=== PATIENT | male | born 2000 | race African-American/Black ===

== ENCOUNTER 2022-08-16 11:38 | Emergency (ER) | payer SELFPAY ==
[2022-08-16 12:14] VITALS: BP 99/47; PULSE 72; RESP 20; TEMP 37.1; O2SAT 100
--- NOTE | 2022-08-16 12:49 | ED.MALEGU ---
HPI - Male Genitourinary General Chief complaint: Urogenital-Male Stated complaint: poss std exposure Time Seen by Provider: 08/16/22 12:32 Source: patient, RN notes reviewed and old records reviewed Mode of arrival: ambulatory Limitations: no limitations History of Present Illness HPI Narrative: 21-year-old male presents to [facility] with complaints possible exposure chlamydia from present girlfriend. Patient states that girlfriend had testing done and was positive. Patient states that testing was highly sensitive type of testing and only wants to be tested and treated for chlamydia since he has not been with anyone else but present girlfriend. Patient reports no penile drainage or any genital discomfort or any fevers. MD Complaint: possible STD exposure Related Data Sexually active: Yes Allergies Allergy/AdvReac Type Severity Reaction Status Date / Time No Known Allergies Allergy Verified 08/16/22 12:26 Review of Systems Review of Systems: CONSTITUTIONAL: Denies fever, chills, or sweats. CARDIOVASCULAR: Denies chest pain, palpitations, or edema. RESPIRATORY: Denies cough or dyspnea. GASTROINTESTINAL: Denies abdominal pain, nausea, vomiting, or diarrhea. GENITOURINARY: Denies dysuria, frequency, urgency. Denies flank pain or hematuria.denies any penile drainage. SKIN: Denies rash or itching. MUSCULOSKELETAL: Denies back pain or myalgia. Denies CVA tenderness NEUROLOGIC: Denies headache All systems reviewed & are unremarkable except as noted in HPI and below PMFSH Social History Social History (Updated 08/19/22 @ 08:49 by Indigo Mcdonald NP) Smoking status: Current every day smoker Tobacco type: e-cigarettes/vaping Alcohol intake: current Alcohol use details: social Substance use: unknown Gender identity (if verbalized by the patient): Male Comments At time of signature, agree with nursing past medical, surgical, social and family history. There is no relevant family history pertinent to the presenting complaint Exam Narrative: GENERAL: Well-appearing, well-nourished, and in no acute distress. HEAD: Normocephalic, atraumatic. NECK: Supple.no lymphadenopathy CHEST: Clear to auscultation. No respiratory distress.SAO2 100% on room air HEART: Regular rate and rhythm. No murmur heard. Normal peripheral pulses. ABDOMEN: Soft, nontender, nondistended, normal active bowel sounds. No CVA tenderness no pain orburning with urination or penile discharge EXTREMITIES: Normal range of motion. No edema. SKIN: Warm, dry, no rash. NEURO: No focal deficits. Alert and oriented x3. Course Course Emergency Course: Patient is aware of diagnosis, understands and agrees to treatment plan.? Anticipatory guidance given.? Patient agrees to follow-up as directed and is aware of reasons to seek care at the emergency department. Portions of this record may have been created with voice recognition software Level of Care: Express Care Visit Vital Signs Vital signs: Vital Signs Temperature 37.1 C 08/16/22 12:14 Pulse Rate 72 08/16/22 12:14 Respiratory Rate 20 08/16/22 12:14 Blood Pressure 99/47 L 08/16/22 12:14 Pulse Oximetry 100 08/16/22 12:14 Oxygen Delivery Room Air 08/16/22 12:14 Temperature 37.1 C 08/16/22 12:14 Pulse Rate 72 08/16/22 12:14 Respiratory Rate 20 08/16/22 12:14 Blood Pressure 99/47 L 08/16/22 12:14 Pulse Oximetry 100 08/16/22 12:14 Oxygen Delivery Room Air 08/16/22 12:14 MDM - Male Genitourinary Differential Diagnosis Differential diagnosis: Likely other (concern for STD exposure, STD testing and treatment for Chlamydia) Medical Records Attestation: I reviewed the patient's medical records. Lab Data Attestation: I reviewed the patient's lab results. Lab results narrative: urine for GC and Chlamydia sent Labs: Lab Results 08/16/22 Range/Units 13:16 C.trachomatis RNA (TMA) Pending N.gonorrhoeae RNA (TMA) Pending Critical Care Time
== END 2022-08-16 13:14 | disposition home or self-care (01) ==
PROVIDERS: Emergency Provider Registered Nurse
DX: Z20.2 Contact with and (suspected) exposure to infections with a predominantly sexual mode of transmission (principal); F17.290 Nicotine dependence, other tobacco product, uncomplicated
CPT/HCPCS: 87491; 87591; 99213; G0463

== ENCOUNTER 2023-12-05 22:52 | Emergency (ER) | payer OTHER, MEDICAID, SELFPAY ==
--- NOTE | ~2023-12-05 | CT_ITS ---
Noncontrast CT scan of the cervical spine Technique: Multiple contiguous axial [address] images of the cervical spine were obtained and rec onstructed in 2D sagittal and coronal planes on the acquisition scanner. Dose reduction technique was used on this scan by utilizing automated exposure control, adjustment of the mA and/or kV according to patient size. The dose-length product (DLP) was 394.95 mGy-cm. Clinical History: Pain Findings: No fractures or dislocations. Unremarkable visualized bony structures. The intervertebral disc spaces are preserved. No prevertebral soft tissue swelling. Impression: No fracture or subluxation of the cervical spine. Reviewed, dictated and finalized at location . Impression: No fracture or subluxation of the cervical spine.
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
[2023-12-05 23:05] VITALS: BP 120/72; PULSE 97; RESP 16; TEMP 36.7; O2SAT 97
[2023-12-06 02:16] VITALS: BP 113/63; PULSE 78; RESP 13; O2SAT 100
[2023-12-06 04:01] LABS: Basophils Absolute Auto 0.1 K/mm3 (0.0-0.1); Basophils Percent Auto 0.6 % (0.2-1.2); Eosinophils Absolute Auto 0.1 K/mm3 (0-0.3); Eosinophils Percent Auto 1.6 % (0-4.4); Hematocrit 40.5 % (42.0-52.0); Hemoglobin 13.3 g/dL (14.0-18.0); Immature Granulocyte Absolute 0.01 K/mm3 (0.00-0.031); Immature Granulocyte Percent A 0.1 % (0-0.5); Lymphocytes Absolute Auto 3.73 K/mm3 (0.9-3.2); Lymphocytes Percent Auto 43.3 % (18.3-44.2); Mean Corpuscular HGB Conc 32.8 g/dl (32-36); Mean Corpuscular Hemoglobin 27.1 pg (26-34); Mean Corpuscular Volume 82.5 fl (80-100); Mean Platelet Volume 9.4 fl (7.4-10.4); Monocytes Absolute Auto 0.5 K/mm3 (0.1-0.6); Monocytes Percent Auto 5.7 % (2.6-8.5); Neutrophils Absolute Auto 4.2 K/mm3 (1.3-6.7); Neutrophils Percent Auto 48.7 % (45.5-73.1); Platelet Count Result 287 k/mm3 (150-375); Red Blood Count 4.91 M/mm3 (4.6-6.20); Red Cell Distribution Width 12.7 % (11.5-14.5); White Blood Count 8.6 K/mm3 (4.5-10.0)
[2023-12-06] MEDS: diazePAM INJ (*CRX) 10 MG/2 ML SYRINGE 5 MG IV PUSH (04:07)
[2023-12-06 04:11] LABS: Alanine Aminotransferase 28 U/L (6-50); Albumin Level 4.6 g/dL (3.5-5.1); Alkaline Phosphatase 77 U/L (38-126); Anion Gap 11 mmol/L (4-12); Aspartate Amino Transferase 32 U/L (17-59); Bilirubin,Total 0.7 mg/dL (0.2-1.3); Blood Urea Nitrogen 16 mg/dL (9-20); Calcium 9.4 mg/dL (8.4-10.2); Carbon Dioxide 28 mmol/L (22-30); Chloride 100 mmol/L (98-107); Estimated CRCL calculation 75 ml/min; Estimated Glomerular Filt Rate > 60; Glucose 85 mg/dL (65-110); Potassium 3.6 mmol/L (3.4-5.0); Sodium 139 mmol/L (137-145)
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
[2023-12-06] MEDS: KETOROLAC 15 MG/ML VIAL (*BKC) IV PUSH (05:29)
[2023-12-06 06:34] VITALS: BP 130/62; PULSE 90; RESP 15; O2SAT 98
== END 2023-12-06 06:35 | disposition home or self-care (01) ==
PROVIDERS: Emergency Provider Emergency Medicine
DX: S39.012A Strain of muscle, fascia and tendon of lower back, initial encounter (principal); S16.1XXA Strain of muscle, fascia and tendon at neck level, initial encounter; F17.290 Nicotine dependence, other tobacco product, uncomplicated; V44.6XXA Car passenger injured in collision with heavy transport vehicle or bus in traffic accident, initial encounter
CPT/HCPCS: 36415; 70450; 71260; 72125; 74177; 80053; 85025; 96374; 96375; 99284; J1885; J3360; Q9967

== ENCOUNTER 2024-11-18 16:07 | Emergency (ER) | payer SELFPAY ==
--- NOTE | ~2024-11-18 | XR_ITS ---
EXAMINATION: XR chest 2V Exam Date/Time: 11/18/2024 16:40 CDT HISTORY: wheezing, cough SINCE SUNDAY Comparison: None. RESULT: Lines, tubes, and devices: None. Lungs and pleura: Clear. Cardiomediastinal silhouette: Normal. Other: No acute osseous or upper abdominal finding. IMPRESSION: No acute cardiopulmonary process. Reviewed, dictated and finalized at location K.
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
--- OUTSIDE RECORDS SUMMARY | 2024-11-18 16:09 | XMS_ITS | Clinical Summary ---
Author Organization [facility] Address [address] [place] [address] Care Team Providers Care Verse Writer Name Role Phone Unavailable Primary Care Provider Unavailabl e Social History Tobacco Use Types Packs/Day Years Used Date Smoking Tobacco: Never Assessed Sex and Gender Information Value Date Recorded Sex Assigned at Not on file Legal Sex Male 4:39 PM CDT Gender Identity Not on file Sexual Orientation Not on file Plan of Treatment Health Maintenance Due Date Last Done Comments Annual Physical 09/01/2003 HPV Vaccines (1 - Male 3-dos e series) 09/01/2015 Hepatitis C 2018 DTaP, Tdap and Td Vaccines ( 1 - Tdap) 09/01/2019 Hepatitis B Vaccines (1 of 3 - 19+ 3-dose series) 09/01/2019 COVID-19 Vaccine ( - 2023-2 5 season) 2023 Meningococcal B Vaccine Aged Out No l onger eligible based on patient's age to complete this topic Meningococcal Vaccine Aged Out No woody ольга eligible based on patient's age to complete this topic Pneumococcal Vaccine: Pediat rics (0 to 5 Years) and At-Risk Patients (6 to 49 Years) Aged Out No longer eligible b ased on patient's age to complete this topic RSV Immunizations Under 20 Months Aged Out No longer eligible based on patient's age to complete this topic
[2024-11-18 16:10] VITALS: BP 120/62; PULSE 106; RESP 16; TEMP 36.7; O2SAT 99
--- OUTSIDE RECORDS SUMMARY | 2024-11-18 16:10 | XMS_ITS | Clinical Summary ---
Author Organization [facility] Address [address] [place] [address] Care Team Providers Care Mechanical Ordnance Assembler Name Role Phone Ryan Jin MD Primary Care Provider [phone] Source Comments [employer] [facility],non-owned Affiliates and Associated Physician Practices is amultiple site organization consisting of ambulatory clinics and hospital sitesin [place], [place], [place] and [place]. This disclosure is being madepursuant to the Care Everywhere program and may not contain all information available regarding this patient. Last updated 18.[employer] Allergies No known active allergies Medications * Be aware that medications may not be up to date on this document. Alwaysverify current medications with the patient. hydrOXYzine HCl (Atarax) 25 MG tablet Take 1 (one) tablet by mouth 4 times daily as needed for Itching 28 tablet 08/28/2024 Active Active Problems Problem Noted Date Diagnosed Date Closed fracture of fifth metatarsal bone 012 Encounters Date Type Department Care Team Description 08/28/2024 6:58 PM CDT - 08/28/2024 8:50 PM CDT Emergency [facility] [address] [place] [id number] Rash (Primary Dx) Discharge Disposition: Home or Self Care 08/28/2024 Travel from Last 3 Months Social History Tobacco Use Types Packs/Day Years Used Date Smoking Tobacco: Never Assessed Sex and Gender Information Value Date Recorded Sex Assigned at Not on file Legal Sex Male 2:09 PM BLANKET CUTTER HAND Gender Identity Not on file Sexual Orientation Not on file Last Filed Vital Signs Vital Sign Reading Time Taken Comments Blood Pressure 99/63 08/28/2024 6:12 PM CDT Pulse 78 08/28/2024 6:12 PM CDT Temperature 36.7 C (98 F) 08/28/2024 6:12 PM CDT Respiratory Rate 18 08/28/2024 6:12 PM CDT Oxygen Saturation 100% 08/28/2024 6:12 PM CDT Inhaled Oxygen Concentration - - Weight 62.6 kg (138 lb) 08/28/2024 6:12 PM CDT Height 172.7 cm (5' 8) 08/28/2024 6:12 PM CDT Body Mass Index 20.98 08/28/2024 6:12 PM CDT Plan of Treatment Health Maintenance Due Date Last Done Comments HIV SCREENING 09/01/2015 HPV VACCINE (1 - Male 3-dose series) 09/01/2015 HEPATITIS C SCREENING 08/27/2018 DTAP/TDAP/TD VACCINES (1 - Tdap) 09/01/2019 HEPATITIS B VACCINE (1 of 3 - 19+ 3-dose series) 09/01/2019 COVID-19 VACCINE (1 - 2023-2 5 season) 2023 DEPRESSION SCREENING 04/30/2024 INFLUENZA VACCINE (#1) 2024 ZOSTER VACCINE (1 of 2) 2050 HIB VACCINE Aged Out No longer eligi ble based on patient's age to complete this topic MENINGOCOCCAL (Group B) VACC INE SHARED DECISION-MAKING Aged Out No longer eligibl e based on patient's age to complete this topic MENINGOCOCCAL GROUPS A/C/Y/W VACCINE Aged Out No longer eligible b ased on patient's age to complete this topic PNEUMOCOCCAL VACCINE Aged Out No long er eligible based on patient's age to complete this topic Insurance [employer] Care Teams Mechanical Ordnance Assembler Relationship Specialty Start Date End Date Ryan Jin MD PCP - General Family Medicine 01/08/18
--- NOTE | 2024-11-18 16:26 | ED_ITS ---
HPI - Male Genitourinary General Chief complaint: Urogenital-Male Stated complaint: I having an outbreak Time Seen by Provider: 11/18/24 16:20 Focused HPI: Patient is a 24-year-old male who presents to the ER with concerns of a herpes outbreak. He reports he has had an outbreak in the past and was placed on Valtrex. Patient reports this outbreak started today. He denies any urinary symptoms, any belly pain, or chest pain. Patient reports he has had a ?cough and cold the past 3 days and has noticed intermittent wheezing. He denies any other medical history besides herpes genitalis. GENERAL: Well-appearing, well-nourished, and in no acute distress. HEAD: Normocephalic, atraumatic. CHEST: L lower lobe crackles to auscultation. ?No respiratory distress. HEART: Regular rate and rhythm.? NEURO: ?Alert and oriented x3. Patient screened in triage and initial orders placed.? ?Additional care and disposition to be based upon?diagnostic testing and treatment. Related Data Allergies Allergy/AdvReac Type Severity Reaction Status Date / Time No Known Allergies Allergy Verified 11/18/24 16:12 Review of Systems Review of Systems: All systems reviewed & are unremarkable except as noted in HPI and below PMFSH Social History Social History Smoking status: Current every day smoker Tobacco type: e-cigarettes/vaping Alcohol intake: current Alcohol use details: social Substance use: unknown Gender identity (if verbalized by the patient): Male Exam Narrative: GENERAL: Well appearing, well-nourished, non-toxic, in no acute distress. HEAD: Normocephalic, atraumatic. NECK: Supple. No adenopathy, no masses. RESPIRATORY: Airway patent, respirations nonlabored. Left lower lobe crackles, otherwise clear to auscultation bilaterally, no rales, rhonchi, wheezing. CARDIOVASCULAR: Regular rate and rhythm without murmurs, rubs, or gallops. Peripheral pulses 2+ and equal bilaterally. ABDOMINAL: Soft, nontender, nondistended, no hepatosplenomegaly. Normoactive BS. MUSCULOSKELETAL: Moves all extremities. Strength/ROM intact without gross deformities. SKIN: Warm, dry, normal color. No rashes. NEURO: A&O X3. Speech clear. Cranial nerves II-XII intact. No ataxic movements. PSYCHIATRIC: Appropriate mood and affect. Normal interaction. Course Vital Signs Vital signs: Vital Signs Temperature 36.7 C 11/18/24 16:10 Pulse Rate 106 H 11/18/24 16:10 Respiratory Rate 16 11/18/24 16:10 Blood Pressure 120/62 11/18/24 16:10 Pulse Oximetry 99 11/18/24 16:10 Oxygen Delivery Room Air 11/18/24 16:10 Temperature 36.7 C 11/18/24 16:10 Pulse Rate 106 H 11/18/24 16:10 Respiratory Rate 16 11/18/24 16:10 Blood Pressure 120/62 11/18/24 16:10 Pulse Oximetry 99 11/18/24 16:10 Oxygen Delivery Room Air 11/18/24 16:10 MDM - Male Genitourinary MDM Narrative Medical decision making narrative: Patient is a 24-year-old male who presents to the ER with concerns of a herpes outbreak. He reports he has had an outbreak in the past and was placed on Valtrex. Patient reports this outbreak started today. He den ies any urinary symptoms, any belly pain, or chest pain. Patient reports he has had a ?cough and cold the past 3 days and has noticed intermittent wheezing. He denies any other medical history besides herpes genitalis. Labs Ordered: None necessary Imaging Ordered: Chest x-ray Medications Ordered: None necessary Results: Patient's chest x-ray indicates No acute cardiopulmonary process. Diagnosis: Herpes genitalis Patient Education/Shared MDM: Results of imaging shared with patient. Patient strongly advised to follow-up with his PCP as needed. He will be discharged home with a prescription for Valtrex. Strict return precautions provided. Patient verbalized understanding and is in agreement with plan. Vital signs stable at time of discharge. All questions answered. Differential Diagnosis Differential diagnosis: Likely urinary tract infection, genital herpes simplex and other (Pneumonia) Imaging Data Attestation: I personally reviewed and interpreted this imaging study as follows: Radiologist's impression: Impressions Chest X-Ray 11/18/24 16:58 IMPRESSION: No acute cardiopulmonary process. Discharge Plan Discharge Clinical Impression: Genital herpes simplex, Cough Patient Disposition: Home Condition: Stable Instructions: Antibiotic Form, Genital Herpes Infection (ED) Additional Instructions: Please return to the ER with any worsening symptoms. Follow-up with primary care provider as needed. Take all medications as prescribed. Patient Language: Divehi Prescriptions: New valacyclovir [Valtrex] 1 gram tablet 1,000 mg PO Q12H Qty: 20 0RF No Action doxycycline hyclate 100 mg capsule 100 mg PO DAILY Qty: 14 0RF cyclobenzaprine 10 mg tablet 10 mg PO TID PRN (Reason: muscle spasm) Qty: 21 0RF ibuprofen 800 mg tablet 800 mg PO TID PRN (Reason: pain) Qty: 30 0RF Follow-up/Referrals: PHYSICIAN,VOCATIONAL REHABILITATION SPECIALIST [Primary Care Provider] - Time of Disposition: 17:25
--- OUTSIDE RECORDS SUMMARY | 2024-11-18 17:34 | XMS_ITS | Clinical Summary ---
Author Organization [facility] Address [address] [place] [address] Care Team Providers Care Reception Interviewer Name Role Phone Ryan Jin MD Primary Care Provider [phone] Source Comments [employer] [facility],non-owned Affiliates and Associated Physician Practices is amultiple site organization consisting of ambulatory clinics and hospital sitesin [place], [place], [place] and [place]. This disclosure is being madepursuant to the Care Everywhere program and may not contain all information available regarding this patient. Last updated 18.[employer] Allergies No known active allergies Medications * [...] CDT - 08/28/2024 8:50 PM CDT Emergency [facility] EMERGENCY DEPARTMENT [address] [place] [id number] Rash (Primary Dx) Discharge Disposition: Home or Self Care 08/28/2024 Travel from Last 3 Months Social History Tobacco Use Types Packs/Day Years Used Date Smoking Tobacco: Never Assessed Sex and Gender Information Value Date Recorded Sex Assigned at Not on file Legal Sex Male 2:09 PM PRODUCTION ROUSTABOUT Gender Identity Not on file Sexual Orientation [...] patient's age to complete this topic Insurance [employer] Care Teams Reception Interviewer Relationship Specialty Start Date End Date Ryan Jin MD PCP - General Family Medicine 01/08/18
--- OUTSIDE RECORDS SUMMARY | 2024-11-18 17:34 | XMS_ITS | Clinical Summary ---
Author Organization [facility] Address [address] [place] [address] Care Team Providers Care Fur Sorter Name Role Phone Unavailable Primary Care Provider [...]
== END 2024-11-18 17:38 | disposition home or self-care (01) ==
LOC: ANHED 17:32
PROVIDERS: Emergency Provider Registered Nurse
DX: A60.00 Herpesviral infection of urogenital system, unspecified (principal); R05.9 Cough, unspecified
CPT/HCPCS: 71046; 99283

== ENCOUNTER 2024-11-28 15:30 | Emergency (ER) | payer SELFPAY ==
--- NOTE | ~2024-11-28 | US_ITS ---
EXAMINATION: US scrotum doppler DATE: 11/28/2024 16:42 INDICATION: lump at base of scrotum . TECHNIQUE: Grayscale and Doppler ultrasound images of the testes were obtained. COMPARISON: None. FINDINGS: The right testis measures 5.7 x 2.4 x 3.3 cm. The left testis measures 5.6 x 2.5 x 3.5 cm. No testicular mass. There is normal vascular flow to both testes. The right epididymis is normal with normal vascular flow. The left epididymis is normal with normal vascular flow. There is no varicocel e or hydrocele. Focused sonographic evaluation at the area of clinical concern revealed only a normal -appearing epididymal head. IMPRESSION: Normal scrotal ultrasound findings. Reviewed, dictated and finalized at location K.
[2024-11-28 15:33] VITALS: BP 139/69; PULSE 105; RESP 18; TEMP 36.6; O2SAT 97
--- OUTSIDE RECORDS SUMMARY | 2024-11-28 15:33 | XMS_ITS | Clinical Summary ---
Author Organization [facility] Address [address] [place] [address] Care Team Providers Care Regrinder Operator Name Role Phone Unavailable Primary Care Provider [...]
--- OUTSIDE RECORDS SUMMARY | 2024-11-28 15:33 | XMS_ITS | Clinical Summary ---
Author Organization [facility] Address [address] [place] [address] Care Team Providers Care Precision Dancer Name Role Phone Ryan Jin MD Primary Care Provider [phone] Source Comments [email or web address] [facility],non-owned Affiliates and Associated Physician Practices is amultiple site organization consisting of ambulatory clinics and hospital sitesin [place], [place], [place] and [place]. This disclosure is being madepursuant to the Care Everywhere program and may not contain all information available regarding this patient. 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
--- OUTSIDE RECORDS SUMMARY | 2024-11-28 15:33 | XMS_ITS | Clinical Summary ---
Author Organization [facility] Address [address] [place] [id number] Care Team Providers Care Ticket Marker Name Role Phone Unavailable Primary Care Provider Unavailabl e Allergies No known active allergies Medications loperamide (IMODIUM) 2 mg capsule Take 1 Capsule (2 mg) by mouth every 3 hours as needed for Diarrhea/Loo se Stools. 30 Capsule 02/04/2024 Active Active Problems No known active problems Encounters Date Type Department Care Team Description 10/14/2024 External Device Data [facility] Provider, Abstract 09/23/2024 External Device Data [facility] Provider, Abstract 09/18/2024 External Device Data [facility] Provider, Abstract 09/17/2024 External Device Data [facility] Provider, Abstract 09/16/2024 External Device Data [facility] Provider, Abstract from Last 3 Months Social History Tobacco Use Types Packs/Day Years Used Date Smoking Tobacco: Never Assessed Sex and Gender Information Value Date Recorded Sex Assigned at Not on file Legal Sex Male 9:47 AM CDT Gender Identity Not on file Sexual Orientation Not on file Last Filed Vital Signs Vital Sign Reading Time Taken Comments Blood Pressure 105/57 02/04/2024 9:52 AM CDT Pulse 65 02/04/2024 9:52 AM CDT Temperature 36.7 C (98 F) 02/04/2024 9:52 AM CDT Respiratory Rate 18 02/04/2024 9:52 AM CDT Oxygen Saturation 98% 02/04/2024 9:52 AM CDT Inhaled Oxygen Concentration - - Weight 63.5 kg (140 lb) 02/04/2024 9:52 AM CDT Height 172.7 cm (5' 8) 02/04/2024 9:52 AM CDT Body Mass Index 21.29 02/04/2024 9:52 AM CDT Plan of Treatment Health Maintenance Due Date Last Done Comments HPV VACCINES (1 - Male 3-dose series) 09/01/2015 DTAP/TDAP/TD VACCINES (1 - Tdap) 09/01/2019 HEPATITIS B VACCINES (1 of 3 - 19+ 3-dose series) 07/2019 INFLUENZA VACCINE (#1) 2024 Insurance [employer] [place]
--- OUTSIDE RECORDS SUMMARY | 2024-11-28 15:33 | XMS_ITS | Patient Health Record ---
Author Organization [facility] Address [address] [place] [address] Care Team Providers Care Electric Meter Tester Helper Name Role Phone Juliet Anaya Primary Care Provider Gifty Gage Unavailable [phone] Allergies No Known Allergies Reason For Referral Reason Peer Recovery Specia list and Individual Psychotherapy upon discharge from CRU/MRU Diagnosis 1 PTSD (post-traumatic stress disorder) (F43.10) Diagnosis 2 CARA (generalized anx iety disorder) (F41.1) Diagnosis 3 Cannabis use disorde r (F12.90) Referral Organization [facility] Referring Provider First Name Keshia Referring Provider Last Name Franc Referring Provider Speciality Psychiatry Referred Provider Specialty [facility] Clinical Notes Carlos Enrique Mattson 10:31:25 AM >Requested services will be coordinated upon consumer's release from CRU/MRU. VEENA contacted CRU/MRU staff for any possible release date information and to coordinate requested services.Srinivasan Paulean 12/04/2023 11:51:32 AM >Received the following response from Jose Guadalupe Marroquin: He is currently on the MRU and is set to discharge on the of this month. HN will coordinate requested services upon discharge date.Srinivasan Paulean 01/02/2024 10:51:38 AM >VEENA PW contacted consumer regarding referral. Consumer is [...] Assigned At Male PRAPARE Question Answer Notes Are you a refugee? No What country are you from? [place] Date Completed/Updated: 11/22/2023 What is your current housing situation? I have h ousing Are you worried about losing your housing? Yes What is the highest level of school that you have finished? Less than a high school degree What is your current work situation? Unemployed [...] phone, visiting friends or family, going to pentecostal or club meetings) 1 or 2 times a week How stressed are you? Stress is when someone feels tense, nervous, anxious, or can\t sleep at night because their mind is troubled Very much In the past year have you sp ent more than 2 nights in a row in a senior care, custodial, [place] health care facility center, or juvenile correctional facility? No Do you feel physically and e motionally safe where you currently live? No In the past year, have you b een afraid of your partner or ex-partner? No PRAPARE Score: 2 Tobacco Control (Standard) Question [...] W/U Status Risk Notes Problem Tobacco user (544141237) Nicotine dependence, unspecified, uncomplicated (F17.200) Active confirmed Problem Posttraumatic stress disorder (84085609) PTSD (post-traumatic stress disorder) (F43.10) Active confirmed Problem Generalized anxiety disorder (71544810) CARA (generalized anxiety disorder) (F41.1) Active confirmed Problem Human herpes simplex virus antibody (888264548) 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) Active confirmed Encounters Encounter Location Date Provider Diagnosis [facility] [address] [place] [address] 11/29/2023 Juliet Anaya [address] [place] [address] 01/02/2024 [email or web address] Gage Plan Of Treatment No Information Insurance Providers Payer Name Payer Address Payer Phone Subscriber Number Group Number Insured Name Patient Relationship to Insured Coverage Start Date Coverage End Date MEDICAID [address] [place] [address] [id number] Flex Gonzalez Self - patient is the insured 4 [employer] [address] [place] [address] [id number] Flex Gonzalez Self - patient is the insured 4
[2024-11-28 15:47] VITALS: BP 107/63; PULSE 65; RESP 17; TEMP 36.5; O2SAT 100
--- NOTE | 2024-11-28 15:50 | ED_ITS ---
HPI - General Adult General Chief complaint: Unspecified <Karla Rivera APRN - Last Filed: 11/28/24 15:53> Stated complaint: Testicle lump <Karla Rivera APRN - Last Filed: 11/28/24 15:53> Time Seen by Provider: 11/28/24 15:40 <Karla Rivera APRN - Last Filed: 11/28/24 15:53> Focused HPI: Patient is a 24-year-old the ER with complaints of a lump at the base of his scrotum. He reports he noticed the lump about a week ago. Patient reports he also had a recent herpes outbreak which was treated with antiviral medication. He reports the lump has grown larger since then. Patient denies any pain at the site, scrotal pain, urinary symptoms or penile discharge. He denies any other medical history relevant to this ER visit. GENERAL: Well-appearing, well-nourished, and in no acute distress. HEAD: Normocephalic, atraumatic. CHEST: Clear to auscultation. ?No respiratory distress. HEART: Regular rate and rhythm.? NEURO: ?Alert and oriented x3. Patient screened in triage and initial orders placed.? ?Additional care and disposition to be based upon?diagnostic testing and treatment. <Karla Rivera APRN - Last Filed: 11/28/24 15:53> History of Present Illness HPI narrative: I agree with the above HPI <Sal Darling MD - Last Filed: 11/28/24 18:52> Related Data Allergies/adverse reactions: Allergies Allergy/AdvReac Type Severity Reaction Status Date / Time No Known Allergies Allergy Verified 11/18/24 16:12 <Karla Rivera APRN - Last Filed: 11/28/24 15:53> Review of Systems Review of Systems: All systems reviewed & are unremarkable except as noted in HPI and below <Sal Darling MD - Last Filed: 11/28/24 18:52> PMFSH Social History Social History: Social History Smoking status: Current every day smoker Tobacco type: e-cigarettes/vaping Alcohol intake: current Alcohol use details: social Substance use: unknown Gender identity (if verbalized by the patient): Male <Karla Rivera APRN - Last Filed: 11/28/24 15:53> Exam Narrative: APPEARANCE: Well appearing, no pain, no distress, well-nourished. HEAD: normocephalic, atraumatic. EYES: PERRLA/EOMI, conjunctivae clear. NOSE: Normal no drainage EARS:TMS clear with good light reflex. THROAT: Pharynx clear, no exudate. NECK: Supple. No adenopathy, no masses. RESPIRATORY: Airway patent, respirations nonlabored. Clear to auscultation bilaterally, no rales, rhonchi, wheezing. CARDIOVASCULAR: Regular rate and rhythm without murmurs rubs or gallops. ABDOMINAL: Soft, nontender, nondistended, normal bowel sounds MUSCULOSKELETAL: Moves all extremities. Strength/ROM intact, No edema, No calf tenderness. NEURO: Alert. Cranial nerves II through XII intact. Good gait. Good coordination Genital exam: Suspected lymph node at left groin, no cellulitis, no abscess <Sal Darling MD - Last Filed: 11/28/24 18:52> Course Vital Signs Vital signs: Vital Signs Temperature 97.9 F 11/28/24 15:33 Pulse Rate 105 H 11/28/24 15:33 Respiratory Rate 18 11/28/24 15:33 Blood Pressure 139/69 11/28/24 15:33 Pulse Oximetry 97 11/28/24 15:33 Temperature 97.7 F 11/28/24 15:47 Pulse Rate 65 11/28/24 15:47 Respiratory Rate 17 11/28/24 15:47 Blood Pressure 107/63 11/28/24 15:47 Pulse Oximetry 100 11/28/24 15:47 Oxygen Delivery Room Air 11/28/24 15:47 <Karla Rivera APRN - Last Filed: 11/28/24 15:53> Vital Signs Temperature 97.9 F 11/28/24 15:33 Pulse Rate 105 H 11/28/24 15:33 Respiratory Rate 18 11/28/24 15:33 Blood Pressure 139/69 11/28/24 15:33 Pulse Oximetry 97 11/28/24 15:33 Temperature 97.7 F 11/28/24 15:47 Pulse Rate 65 11/28/24 15:47 Respiratory Rate 17 11/28/24 15:47 Blood Pressure 107/63 11/28/24 15:47 Pulse Oximetry 100 11/28/24 15:47 Oxygen Delivery Room Air 11/28/24 15:47 <Sal Darling MD - Last Filed: 11/28/24 18:52> Medical Decision Making Vital Signs Vital Signs: Vital Signs Temperature 97.9 F 11/28/24 15:33 Pulse Rate 105 H 11/28/24 15:33 Respiratory Rate 18 11/28/24 15:33 Blood Pressure 139/69 11/28/24 15:33 Pulse Oximetry 97 11/28/24 15:33 Temperature 97.7 F 11/28/24 15:47 Pulse Rate 65 11/28/24 15:47 Respiratory Rate 17 11/28/24 15:47 Blood Pressure 107/63 11/28/24 15:47 Pulse Oximetry 100 11/28/24 15:47 Oxygen Delivery Room Air 11/28/24 15:47 <Karla Rivera APRN - Last Filed: 11/28/24 15:53> Vital Signs Temperature 97.9 F 11/28/24 15:33 Pulse Rate 105 H 11/28/24 15:33 Respiratory Rate 18 11/28/24 15:33 Blood Pressure 139/69 11/28/24 15:33 Pulse Oximetry 97 11/28/24 15:33 Temperature 97.7 F 11/28/24 15:47 Pulse Rate 65 11/28/24 15:47 Respiratory Rate 17 11/28/24 15:47 Blood Pressure 107/63 11/28/24 15:47 Pulse Oximetry 100 11/28/24 15:47 Oxygen Delivery Room Air 11/28/24 15:47 <Sal Darling MD - Last Filed: 11/28/24 18:52> Lab Data Labs: Lab Results 11/28/24 Range/Units 15:55 Urine Color Yellow (Yellow) Urine Appearance Clear (Clear) Urine pH 7.0 (5.0-9.0) Ur Specific [place] 1.025 (1.001-1.035) Urine Protein 1+ H (Negative) mg/dL Urine Glucose (UA) Negative (Negative) mg/dL Urine Ketones Negative (Negative) mg/dL Ur Blood (Man) Negative (Negative) Urine Nitrate Negative (Negative) Urine Bilirubin Negative (Negative) Urine Urobilinogen 1.0 (<2.0) mg/dL Leukocyte Esterase Rfl Negative (Negative) IRISH/UL Urine RBC 0-2 (0-2) /hpf Urine WBC 0-5 (0-3) /hpf Ur Squamous Epith Cells None seen (Few) /hpf Urine Bacteria None seen /hpf Urine Casts 0-2 <Karla Rivera APRN - Last Filed: 11/28/24 15:53> Lab Results 11/28/24 Range/Units 15:55 Urine Color Yellow (Yellow) Urine Appearance Clear (Clear) Urine pH 7.0 (5.0-9.0) Ur Specific [place] 1.025 (1.001-1.035) Urine Protein 1+ H (Negative) mg/dL Urine Glucose (UA) Negative (Negative) mg/dL Urine Ketones Negative (Negative) mg/dL Ur Blood (Man) Negative (Negative) Urine Nitrate Negative (Negative) Urine Bilirubin Negative (Negative) Urine Urobilinogen 1.0 (<2.0) mg/dL Leukocyte Esterase Rfl Negative (Negative) IRISH/UL Urine RBC 0-2 (0-2) /hpf Urine WBC 0-5 (0-3) /hpf Ur Squamous Epith Cells None seen (Few) /hpf Urine Bacteria None seen /hpf Urine Casts 0-2 <Sal Darling MD - Last Filed: 11/28/24 18:52> Discharge Plan Discharge Clinical Impression: Lymphadenopathy <Karla Rivera APRN - Last Filed: 11/28/24 15:53> Patient Disposition: Home <Karla Rivera APRN - Last Filed: 11/28/24 15:53> Condition: Stable <Karla Rivera APRN - Last Filed: 11/28/24 15:53> Instructions: Antibiotic Form, Lymphadenopathy (ED) <Karla Rivera APRN - Last Filed: 11/28/24 15:53> Additional Instructions: Scheduled ibuprofen for enlarged lymph nodes. Have close follow-up with your primary care physician. Have close follow-up with Urology. If you have any worsening symptoms then please call or return to the emergency department. <Karla Rivera APRN - Last Filed: 11/28/24 15:53> Patient Language: Russian <Karla Rivera, DEDICATED LOCAL TRUCK DRIVER - Last Filed: 11/28/24 15:53> Prescriptions: No Action doxycycline hyclate 100 mg capsule 100 mg PO DAILY Qty: 14 0RF cyclobenzaprine 10 mg tablet 10 mg PO TID PRN (Reason: muscle spasm) Qty: 21 0RF ibuprofen 800 mg tablet 800 mg PO TID PRN (Reason: pain) Qty: 30 0RF valacyclovir [Valtrex] 1 gram tablet 1,000 mg PO Q12H Qty: 20 0RF <Karla Rivera, DEDICATED LOCAL TRUCK DRIVER - Last Filed: 11/28/24 15:53> Follow-up/Referrals: Arthur Moreland MD [Physician] - PHYSICIAN,HOSPICE EXECUTIVE DIRECTOR [Primary Care Provider] - <Karla Rivera, DEDICATED LOCAL TRUCK DRIVER - Last Filed: 11/28/24 15:53>
[2024-11-28 16:07] LABS: Add Urine Microscopic? YES; Appearance Urine Clear (Clear); Glucose Urine UA Negative (Negative); Leukocyte Esterase Ur Negative LEU/UL (Negative); Nitrate Urine Negative (Negative); Non Pathogenic Casts 0-2; Specific Grav Ur 1.025 (1.001-1.035)
--- OUTSIDE RECORDS SUMMARY | 2024-11-28 17:51 | XMS_ITS | Clinical Summary ---
Author Organization [facility] Address [address] [place] [id number] Care Team Providers Care Tellers Supervisor Name Role Phone Unavailable Primary Care Provider [...]
--- OUTSIDE RECORDS SUMMARY | 2024-11-28 17:51 | XMS_ITS | Clinical Summary ---
Author Organization [facility] Address [address] [place] [address] Care Team Providers Care Numerical Control Nesting Operator Name Role Phone Unavailable Primary Care [...]
--- OUTSIDE RECORDS SUMMARY | 2024-11-28 17:51 | XMS_ITS | Clinical Summary ---
Author Organization [facility] Address [address] [place] [address] Care Team Providers Care Towel Hemmer Name Role Phone Ryan Jin MD Primary Care Provider [phone] Source Comments [employer] [facility],non-owned Affiliates and Associated Physician Practices is amultiple site organization consisting of ambulatory clinics and hospital sitesin [place], [place], [place] and [place]. This disclosure is being madepursuant to the Care Everywhere program and may not contain all information available regarding this patient. 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
== END 2024-11-28 18:10 | disposition home or self-care (01) ==
LOC: ANHED 17:49
PROVIDERS: Registered Nurse; Emergency Provider Emergency Medicine
DX: R59.1 Generalized enlarged lymph nodes (principal); F17.290 Nicotine dependence, other tobacco product, uncomplicated
CPT/HCPCS: 76870; 81001; 93976; 99284

== ENCOUNTER 2025-01-28 14:26 | Emergency (ER) | payer SELFPAY ==
[2025-01-28 14:30] VITALS: BP 146/101; PULSE 104; RESP 16; TEMP 36.4; O2SAT 98
--- OUTSIDE RECORDS SUMMARY | 2025-01-28 14:33 | XMS_ITS | Clinical Summary ---
Author Organization [facility] Address [address] [place] [address] Care Team Providers Care Rn Resource Nurse Name Role Phone Ryan Jin MD Primary Care Provider Source Comments [employer],non-owned Affiliates and Associated Physician Practices is amultiple site organization consisting of ambulatory clinics and hospital sitesin [place] and [place]. This disclosure is being madepursuant to the Care Everywhere program and may not contain all information available regarding this patient. Last updated [email or web address] Allergies No known active allergies Medications * Be aware that medications may not be up to date on this document. Alwaysverify current medications with the patient. 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
--- OUTSIDE RECORDS SUMMARY | 2025-01-28 14:33 | XMS_ITS | Clinical Summary ---
Author Organization [facility] Address [address] [place] [address] Care Team Providers Care Steam Tank Operator Name Role Phone Unavailable Primary Care Provider Unavailabl e Allergies No known active allergies Medications loperamide (IMODIUM) 2 mg capsule Take 1 Capsule (2 mg) by mouth every 3 hours as needed for Diarrhea/Loo se Stools. 30 Capsule 02/04/2024 Active Active Problems No known active problems Encounters Date Type Department Care Team Description 01/13/2025 External Device Data [facility] ABSTRACTION Provider, Abstract [...]
--- OUTSIDE RECORDS SUMMARY | 2025-01-28 14:33 | XMS_ITS | Clinical Summary ---
Author Organization [facility] Address [address] [place] [address] Care Team Providers Care Electronic Drafter Name Role Phone Unavailable Primary Care Provider [...] - 19+ 3-dose series) 09/01/2019 COVID-19 Vaccine (1 - 2023-2 5 season) 2024 Meningococcal B Vaccine Aged Out No l [...]
--- NOTE | 2025-01-28 15:29 | ED_ITS ---
HPI - General Adult General Chief complaint: Unspecified Stated complaint: Wants Rx for Valtrex Time Seen by Provider: 01/28/25 14:51 Source: patient Mode of arrival: ambulatory Limitations: no limitations History of Present Illness HPI narrative: Patient is a 24-year-old male who presents to the ED requesting a refill of his Valtrex medication. Patient has history of HSV. Has previously been on valacyclovir for this. Reports he quit smoking marijuana recently and his body has been under increased stress. He began having another outbreak 2 days ago. He ran out of his valacyclovir medicine and is wanting a refill. Reports lesions at the base of his penis, consistent with his previous outbreaks. Denies any concern for other STDs, has been with the same partner for over 1 year. Denies fevers, dysuria, penile discharge. Related Data Allergies Allergy/AdvReac Type Severity Reaction Status Date / Time No Known Allergies Allergy Verified 01/28/25 14:44 Review of Systems Review of Systems: All systems reviewed & are unremarkable except as noted in HPI. All systems reviewed & are unremarkable except as noted in HPI and below PMFSH Social History Social History Smoking status: Current every day smoker Tobacco type: e-cigarettes/vaping Alcohol intake: current Alcohol use details: social Substance use: unknown Gender identity (if verbalized by the patient): Male Exam Narrative: GENERAL: Well appearing, thin, non-toxic, in no acute distress. HEAD: Normocephalic, atraumatic. RESPIRATORY: Airway patent, respirations nonlabored. CARDIOVASCULAR: Regular rate and rhythm MUSCULOSKELETAL: Moves all extremities. No gross deformities. SKIN: Warm, dry, normal color. NEURO: A&O X3. Speech clear. PSYCHIATRIC: Appropriate mood and affect. Normal interaction. Course Vital Signs Vital signs: Vital Signs Temperature 97.6 F 01/28/25 14:30 Pulse Rate 104 H 01/28/25 14:30 Respiratory Rate 16 01/28/25 14:30 Blood Pressure 146/101 H 01/28/25 14:30 Pulse Oximetry 98 01/28/25 14:30 Oxygen Delivery Room Air 01/28/25 14:30 Temperature 97.6 F 01/28/25 14:30 Pulse Rate 104 H 01/28/25 14:30 Respiratory Rate 16 10/01/25 14:30 Blood Pressure 146/101 H 01/28/25 14:30 Pulse Oximetry 98 01/28/25 14:30 Oxygen Delivery Room Air 01/28/25 14:30 Medical Decision Making MDM Narrative Medical decision making narrative: Rx sent to pharmacy. Patient given return precautions. D/C in stable condition. Medical Records Medical records reviewed: Yes I reviewed the external patient's medical records. Vital Signs Vital Signs: Vital Signs Temperature 97.6 F 01/28/25 14:30 Pulse Rate 104 H 01/28/25 14:30 Respiratory Rate 16 01/28/25 14:30 Blood Pressure 146/101 H 01/28/25 14:30 Pulse Oximetry 98 01/28/25 14:30 Oxygen Delivery Room Air 01/28/25 14:30 Temperature 97.6 F 01/28/25 14:30 Pulse Rate 104 H 01/28/25 14:30 Respiratory Rate 16 01/28/25 14:30 Blood Pressure 146/101 H 01/28/25 14:30 Pulse Oximetry 98 01/28/25 14:30 Oxygen Delivery Room Air 01/28/25 14:30 Discharge Plan Discharge Clinical Impression: Encounter for medication refill, Genital HSV Patient Disposition: Home Condition: Stable Instructions: Antibiotic Form, Genital Herpes Infection (ED) Additional Instructions: Take valacyclovir twice daily for the next 7-10 days. Follow-up with your primary care doctor for further evaluation as needed. Patient Language: Azeri Prescriptions: New valacyclovir 1 gram tablet 1,000 mg PO BID 10 Days Qty: 20 0RF No Action doxycycline hyclate 100 mg capsule 100 mg PO DAILY Qty: 14 0RF cyclobenzaprine 10 mg tablet 10 mg PO TID PRN (Reason: muscle spasm) Qty: 21 0RF ibuprofen 800 mg tablet 800 mg PO TID PRN (Reason: pain) Qty: 30 0RF valacyclovir [Valtrex] 1 gram tablet 1,000 mg PO Q12H Qty: 20 0RF Follow-up/Referrals: PHYSICIAN,DIESEL MAINTENANCE ELECTRICIAN [Primary Care Provider, Internal Medicine] Jovani Noland MD [Physician, Family Practice] Referral Note: PRIMARY CARE Time of Disposition: 15:33
--- OUTSIDE RECORDS SUMMARY | 2025-01-28 15:56 | XMS_ITS | Clinical Summary ---
Author Organization [facility] Address [address] [place] [address] Care Team Providers Care Active Directory Administrator Name Role Phone Unavailable Primary Care Provider [...]
--- OUTSIDE RECORDS SUMMARY | 2025-01-28 15:56 | XMS_ITS | Clinical Summary ---
Author Organization [facility] Address [address] [place] [address] Care Team Providers Care Fisher Swordfish Name Role Phone Unavailable Primary Care Provider [...]
--- OUTSIDE RECORDS SUMMARY | 2025-01-28 15:56 | XMS_ITS | Clinical Summary ---
Author Organization [facility] [employer] [facility] Address [address] [place] [address] Care Team Providers Care Supervisor Payroll Name Role Phone Ryan Jin MD Primary Care Provider [phone] Source Comments [employer] [facility],non-owned Affiliates and Associated Physician Practices is amultiple site organization consisting of ambulatory clinics and hospital sitesin [place], [place], [place] and [place]. This disclosure is being madepursuant to the Care Everywhere program and may not contain all information available regarding this patient. 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
== END 2025-01-28 15:55 | disposition home or self-care (01) ==
LOC: ANHED 15:54
PROVIDERS: Emergency Provider Physician Assistant
DX: A60.01 Herpesviral infection of penis (principal); F17.290 Nicotine dependence, other tobacco product, uncomplicated; Z76.0 Encounter for issue of repeat prescription
CPT/HCPCS: 99281

== ENCOUNTER 2025-04-10 13:43 | Emergency (ER) | payer SELFPAY ==
[2025-04-10 14:04] VITALS: BP 141/107; PULSE 94; RESP 16; TEMP 36.7; O2SAT 99
--- NOTE | 2025-04-10 15:29 | ED.GENADULT ---
HPI - General Adult General Chief complaint: Urogenital-Male Stated complaint: I need valtrex Time Seen by Provider: 04/10/25 15:28 History of Present Illness HPI narrative: Patient 24-year-old gentleman presents emergency department chief complaint of I need Valtrex. Patient states that he started having outbreak 24 hours ago reports that he does not have any Valtrex at home Related Data Allergies Allergy/AdvReac Type Severity Reaction Status Date / Time No Known Allergies Allergy Verified 04/10/25 13:45 Review of Systems Review of Systems: A 10 system review of systems was completed on the patient and is negative except for what is stated in the HPI. Nursing and ancillary documentation was reviewed. [facility] Social History Social History Smoking status: Current every day smoker Tobacco type: e-cigarettes/vaping Alcohol intake: current Alcohol use details: social Substance use: unknown Gender identity (if verbalized by the patient): Male Exam Narrative: GENERAL: Well-appearing, well-nourished, and in no acute distress. HEAD: Normocephalic, atraumatic. EYES: PERRLA and EOMI. ENT: Nares clear, no rhinorrhea or epistaxis. Mucous membranes moist. NECK: Supple. CHEST: Clear to auscultation. No respiratory distress. HEART: Regular rate and rhythm. No murmur heard. Normal peripheral pulses. ABDOMEN: Soft, nontender, nondistended, normal active bowel sounds. EXTREMITIES: Normal range of motion. No edema. SKIN: Warm, dry, no rash. NEURO: No focal deficits. Alert and oriented x3. PSYCH: Normal mood and affect. Course Vital Signs Vital signs: Vital Signs Temperature 36.7 C 04/10/25 14:04 Pulse Rate 94 04/10/25 14:04 Respiratory Rate 16 04/10/25 14:04 Blood Pressure 141/107 H 04/10/25 14:04 Pulse Oximetry 99 04/10/25 14:04 Oxygen Delivery Room Air 04/10/25 14:04 Temperature 36.7 C 04/10/25 14:04 Pulse Rate 94 04/10/25 14:04 Respiratory Rate 16 04/10/25 14:04 Blood Pressure 141/107 H 04/10/25 14:04 Pulse Oximetry 99 04/10/25 14:04 Oxygen Delivery Room Air 04/10/25 14:04 MDM MDM Narrative Medical decision making narrative: Patient has known history of genital herpes and will be given a prescription for Valtrex Differential Diagnosis Differential Diagnosis: Genital herpes outbreak Discharge Plan Discharge Clinical Impression: Genital herpes Patient Disposition: Home Condition: Stable Instructions: Antibiotic Form, Genital Herpes Infection (ED) Patient Language: Luxembourgish Prescriptions: New valacyclovir [Valtrex] 1 gram tablet 1,000 mg PO Q12H 7 Days Qty: 14 0RF No Action doxycycline hyclate 100 mg capsule 100 mg PO DAILY Qty: 14 0RF cyclobenzaprine 10 mg tablet 10 mg PO TID PRN (Reason: muscle spasm) Qty: 21 0RF ibuprofen 800 mg tablet 800 mg PO TID PRN (Reason: pain) Qty: 30 0RF valacyclovir [Valtrex] 1 gram tablet 1,000 mg PO Q12H Qty: 20 0RF valacyclovir 1 gram tablet 1,000 mg PO BID 10 Days Qty: 20 0RF Follow-up/Referrals: Adriana Harvey MD [Physician, Family Practice] PHYSICIAN,ORDNANCE OFFICER [Primary Care Provider, Internal Medicine] Time of Disposition: 15:32
[2025-04-10 15:47] VITALS: BP 107/50; PULSE 64; RESP 18; TEMP 36.5; O2SAT 98
== END 2025-04-10 15:49 | disposition home or self-care (01) ==
LOC: ANHED 15:37
PROVIDERS: Emergency Provider Emergency Medicine; PCP Emergency Medicine
DX: A60.00 Herpesviral infection of urogenital system, unspecified (principal); F17.290 Nicotine dependence, other tobacco product, uncomplicated
CPT/HCPCS: 99283

== ENCOUNTER 2025-04-24 12:39 | Emergency (ER) | payer SELFPAY ==
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
--- OUTSIDE RECORDS SUMMARY | 2025-04-24 12:42 | XMS_ITS | Clinical Summary ---
Author Organization [facility] [employer] Address [address] [place] [address] Care Team Providers Care Fitness/Wellness Director Name Role Phone Ryan Jin MD Primary Care Provider Source Comments [employer] [facility],non-owned Affiliates and Associated Physician Practices is amultiple site organization consisting of ambulatory clinics and hospital sitesin [place], [place], [place] and [place]. This disclosure is being madepursuant to the Care Everywhere program and may not contain all information available regarding this patient. 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
--- OUTSIDE RECORDS SUMMARY | 2025-04-24 12:42 | XMS_ITS | Clinical Summary ---
Author Organization [facility] Address [address] [place] [address] Care Team Providers Care Physician Industrial Name Role Phone Unavailable Primary Care Provider [...] 3-dose series) 09/01/2019 COVID-19 Vaccine ( - 2024-2 6 season) 2024 Influenza Adult (#1) 2025 Hepatitis A Vaccines Aged Out No long er eligible based on patient's age to complete this topic Meningococcal B Vaccine Aged Out No l [...]
--- OUTSIDE RECORDS SUMMARY | 2025-04-24 12:42 | XMS_ITS | Clinical Summary ---
Author Organization [facility] Address [address] [place] [address] Care Team Providers Care Division Chief Name Role Phone Unavailable Primary Care Provider Unavailabl e Allergies No known active allergies Medications loperamide (IMODIUM) 2 mg capsule Take 1 Capsule (2 mg) by mouth every 3 hours as needed for Diarrhea/Loo se Stools. 30 Capsule 02/04/2024 Active Active Problems No known active problems Social History Tobacco Use Types Packs/Day Years [...]
[2025-04-24 12:52] VITALS: BP 93/59; PULSE 75; RESP 16; TEMP 36.7; O2SAT 100
--- NOTE | 2025-04-24 13:04 | ED_ITS ---
HPI - Skin/Abscess/Foreign Bdy General Chief complaint: Recheck/Abnormal Lab/Rx Stated complaint: valtrex prescription Time Seen by Provider: 04/24/25 13:03 Focused HPI: Patient is a 24-year-old male who presents to the ER with concerns herpes outbreak. He reports his symptoms started yesterday. Patient endorses sores at the base of his penis. He endorses recent substance abuse and reports he has not been sleeping much lately, which increases his stress levels. Patient is unsure whether not this is contributing to his frequent herpes outbreaks. He is also requesting testing and treatment for other STDs. Patient endorses urinary symptoms including a split stream and is unsure whether not he has had penile discharge. He denies any positive known partners, abdominal pain, recent fevers, or acute back pain. GENERAL: Well-appearing, well-nourished, and in no acute distress. HEAD: Normocephalic, atraumatic. CHEST: Clear to auscultation. ?No respiratory distress. HEART: Regular rate and rhythm.? NEURO: ?Alert and oriented x3. Patient screened in triage and initial orders placed.? ?Additional care and disposition to be based upon?diagnostic testing and treatment. History of Present Illness HPI narrative: Patient is a 24-year-old the ER with complaints of a lump at the base of his scrotum. He reports he noticed the lump about a week ago. Patient reports he also had a recent herpes outbreak which was treated with antiviral medication. He reports the lump has grown larger since then. Patient denies any pain at the site, scrotal pain, urinary symptoms or penile discharge. He denies any other medical history relevant to this ER visit. Related Data Allergies Allergy/AdvReac Type Severity Reaction Status Date / Time No Known Allergies Allergy Verified 04/24/25 12:41 Review of Systems Review of Systems: All systems reviewed & are unremarkable except as noted in HPI and below PMFSH Social History Social History Smoking status: Current every day smoker Tobacco type: e-cigarettes/vaping Alcohol intake: current Alcohol use details: social Substance use: unknown Gender identity (if verbalized by the patient): Male Exam Narrative: GENERAL: Well appearing, well-nourished, non-toxic, in no acute distress. HEAD: Normocephalic, atraumatic. NECK: Supple. No adenopathy, no masses. RESPIRATORY: Airway patent, respirations nonlabored. Clear to auscultation bilaterally, no rales, rhonchi, wheezing. CARDIOVASCULAR: Regular rate and rhythm without murmurs, rubs, or gallops. Peripheral pulses 2+ and equal bilaterally. ABDOMINAL: Soft, nontender, nondistended, no hepatosplenomegaly. Normoactive BS. MUSCULOSKELETAL: Moves all extremities. Strength/ROM intact without gross deformities. NEURO: A&O X3. Speech clear. Cranial nerves II-XII intact. No ataxic movements. PSYCHIATRIC: Appropriate mood and affect. Normal interaction. Course Vital Signs Vital signs: Vital Signs Temperature 36.7 C 04/24/25 12:52 Pulse Rate 75 04/24/25 12:52 Respiratory Rate 16 04/24/25 12:52 Blood Pressure 93/59 L 04/24/25 12:52 Pulse Oximetry 100 04/24/25 12:52 Oxygen Delivery Room Air 04/24/25 12:52 Temperature 36.7 C 04/24/25 12:52 Pulse Rate 75 04/24/25 12:52 Respiratory Rate 16 04/24/25 12:52 Blood Pressure 93/59 L 04/24/25 12:52 Pulse Oximetry 100 04/24/25 12:52 Oxygen Delivery Room Air 04/24/25 12:52 MDM MDM Narrative Medical decision making narrative: Patient is a 24-year-old male who presents to the ER with concerns herpes outbreak. He reports his symptoms started yesterday. Patient endorses sores at the base of his penis. He endorses recent substance abuse and reports he has not been sleeping much lately, which increases his stress levels. Patient is unsure whether not this is contributing to his frequent herpes outbreaks. He is also requesting testing and treatment for other STDs. Patient endorses urinary symptoms including a split stream and is unsure whether not he has had penile discharge. He denies any positive known partners, abdominal pain, recent fevers, or acute back pain. Labs Ordered: UA, GC chlamydia, Trichomonas Imaging Ordered: None necessary Patient Education/Shared MDM: Patient reports he would like to be tested for STDs but he does not want to stay for results. He was given up pamphlet and advised to follow-up with his PCP as soon as possible for further discussion. Patient educated on safe sex precautions. He will be discharged home with a prescription for valacyclovir. Strict return precautions provided. Patient verbalized understanding and is in agreement with plan. Vital signs stable at time of discharge. All questions answered. Differential Diagnosis Differential Diagnosis: Herpes genitalis, chlamydia, gonorrhea, Trichomonas, urinary tract infection Lab Data Labs: Lab Results 04/24/25 Range/Units 15:38 Urine Color Pending Urine Appearance Pending Urine pH Pending Ur Specific [place] Pending Urine Protein Pending Urine Glucose (UA) Pending Urine Ketones Pending Ur Blood (Man) Pending Urine Nitrate Pending Urine Bilirubin Pending Urine Urobilinogen Pending Leukocyte Esterase Rfl Pending C. trachomatis (PCR) Pending N. gonorrhoeae (PCR) Pending T. vaginalis (PCR) Pending Discharge Plan Discharge Clinical Impression: Herpes genitalis in men, Sexually transmitted disease counseling Patient Disposition: Home Condition: Stable Instructions: Antibiotic Form, Genital Herpes Infection (ED), Sexually Transmitted Diseases (ED) Additional Instructions: Please return to the ER with any worsening symptoms. Follow-up with primary care provider as soon as possible to review your STD results. It is imperative you follow-up with them, as you me need antibiotics if you have any other sexually transmitted diseases. Please refrain from further substance use. Complete your full dose of Valacyclovir. Patient Language: Senegalese Prescriptions: New valacyclovir 500 mg tablet 500 mg PO BID Qty: 6 0RF Follow-up/Referrals: Ryan Jin MD [Primary Care Provider, [facility]] Time of Disposition: 15:55
--- OUTSIDE RECORDS SUMMARY | 2025-04-24 13:17 | XMS_ITS | Clinical Summary ---
Author Organization 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 This disclosure is being madepursuant to the Care Everywhere program and may not contain all information available regarding this patient. 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
--- OUTSIDE RECORDS SUMMARY | 2025-04-24 13:17 | XMS_ITS | Clinical Summary ---
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
--- OUTSIDE RECORDS SUMMARY | 2025-04-24 13:17 | XMS_ITS | Clinical Summary ---
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
[2025-04-24 15:45] LABS: Add Urine Microscopic? NO; Appearance Urine Clear (Clear); Glucose Urine UA Negative (Negative); Leukocyte Esterase Ur Negative LEU/UL (Negative); Nitrate Urine Negative (Negative); Specific Grav Ur 1.020 (1.001-1.035)
[2025-04-24 16:49] LABS: Trichomonas Vag PCR NOT DETECTED (NOT DETECTE)
== END 2025-04-24 16:26 | disposition home or self-care (01) ==
PROVIDERS: Emergency Provider Registered Nurse; PCP Emergency Medicine
DX: A60.01 Herpesviral infection of penis (principal); F17.290 Nicotine dependence, other tobacco product, uncomplicated; Z11.3 Encounter for screening for infections with a predominantly sexual mode of transmission
CPT/HCPCS: 81003; 87491; 87591; 87661; 99283